=== PATIENT | male | born 1980 | race Caucasian/White ===

== ENCOUNTER 2016-08-07 18:31 | Emergency (ER) | payer BC ==
[~2016-08-07] VITALS: Ht 180.3 cm; Wt 65.0 kg
[2016-08-07 18:38] VITALS: TEMP 36.9; Ht 180.3 cm; Wt 65.0 kg
[2016-08-07] MEDS ORDERED: DIPH1TAB87 PO (20:00)
--- NOTE | 2016-08-07 20:01 | EMERGENCY ROOM VISIT NOTE ---
History Report prepared by Iggy: Lexie Meyer Under the Supervision of: Dr. Luis Coles M.D. First contact with patient: 19:42 Chief Complaint: ABDOMINAL PAIN Stated Complaint: ABDOMINAL PAIN, CRAMPS, BLOOD IN STOOL Nursing Triage Summary: Patient reports he administered an emema of vodka last night and now is having rectal bleeding for the past 5 hours. History of Present Illness The patient is a 36 year old male who presents to the Emergency Room with complaints of worsening rectal bleeding with onset five hours ago. He rates his discomfort as a 2/10. Today, the patient used a syringe plunger to administer a vodka enema as a "routine cleansing procedure." He denies that there was anything sharp on the plunger. He states that this is the third time he has given himself an enema. After giving himself the enema, the patient developed abdominal cramping and later noticed that there was bright red blood in his stool. The patient has had been able to pass a small amount of stool, he states that the stool is normal in appearance. The patient states that he is mostly concerned about infections. The patient denies a history of abdominal surgeries. Source of History: patient Onset: 5 hours ago Position: other (rectum) Symptom Intensity: 2/10 Quality: other (blood in stool) Timing: worsening Note: He has some abdominal cramping. Review of Systems See HPI for pertinent positives & negatives. A total of 10 systems reviewed and were otherwise negative. Past Medical & Surgical Medical Problems: (1) No chronic problems Family History Diabetes mellitus Social History Smoking Status: Never Smoker Alcohol Use: occasionally Marital Status: single Occupation Status: unemployed Current/Historical Medications Scheduled Sennosides-Docusate Sodium (Senokot S), 1 TAB PO BID Scheduled PRN Diphenhydramine Hcl (Benadryl Allergy), 50 MG PO HS PRN for Sleep Allergies Coded Allergies: Penicillins (Unverified Allergy, Unknown, RASH, 08/07/16) Physical Exam Vital Signs Date Time Temp Pulse Resp B/P Pulse Ox O2 Delivery O2 Flow Rate FiO2 08/08/16 00:21 58 16 107/73 97 08/07/16 21:41 60 18 117/68 100 08/07/16 18:38 36.9 59 20 137/92 95 Room Air Physical Exam GENERAL: Patient is in no acute distress. HEENT: No acute trauma, normocephalic atraumatic, mucous membranes moist, no nasal congestion, no scleral icterus. NECK: No stridor, no adenopathy, no meningismus, trachea is midline. LUNGS: Clear to auscultation bilaterally, no wheeze, no rhonchi, breath sounds equal. HEART: Without murmurs gallops or rubs, regular rate and rhythm. ABDOMEN: Soft, nontender, bowel sounds positive, no hernias, no peritonitis. EXTREMITIES: No cyanosis or edema, full range of motion of all the joints without pain or difficulty, no signs for acute trauma. NEUROLOGIC: Oriented x 3, no acute motor or sensory deficits, no focal weakness. SKIN: No rash, no jaundice, no diaphoresis. RECTAL: No anal tear or hemorrhoid, no external source for bleeding, digital exam reveals no mass, no bright red blood, heme test was positive. Medical Decision & Procedures ER Provider Diagnostic Interpretation: CT results as stated below per my review and radiologist interpretation: CT Abdomen and Pelvis: Distal colitis. No free air or abscess. Normal appendix. Radiologist: John Lee MD. Laboratory Results 08/07/16 20:10 Red Blood Count 5.06, Mean Corpuscular Volume 91.3, Mean Corpuscular Hemoglobin 32.4, Mean Corpuscular Hemoglobin Concent 35.5, Mean Platelet Volume 11.8, Neutrophils (%) (Auto) 80.4, Lymphocytes (%) (Auto) 12.0, Monocytes (%) (Auto) 6.9, Eosinophils (%) (Auto) 0.2, Basophils (%) (Auto) 0.3, Neutrophils # (Auto) 8.08, Lymphocytes # (Auto) 1.21, Monocytes # (Auto) 0.69, Eosinophils # (Auto) 0.02, Basophils # (Auto) 0.03 08/07/16 20:10 Test 08/07/16 20:10 White Blood Count 10.05 K/uL (4.8-10.8) Red Blood Count 5.06 M/uL (4.7-6.1) Hemoglobin 16.4 g/dL (14.0-18.0) Hematocrit 46.2 % (42-52) Mean Corpuscular Volume 91.3 fL (80-100) Mean Corpuscular Hemoglobin 32.4 pg (25-34) Mean Corpuscular Hemoglobin Concent 35.5 g/dl (32-36) Platelet Count 179 K/uL (130-400) Mean Platelet Volume 11.8 fL (7.4-10.4) Neutrophils (%) (Auto) 80.4 % Lymphocytes (%) (Auto) 12.0 % Monocytes (%) (Auto) 6.9 % Eosinophils (%) (Auto) 0.2 % Basophils (%) (Auto) 0.3 % Neutrophils # (Auto) 8.08 K/uL (1.4-6.5) Lymphocytes # (Auto) 1.21 K/uL (1.2-3.4) Monocytes # (Auto) 0.69 K/uL (0.11-0.59) Eosinophils # (Auto) 0.02 K/uL (0-0.5) Basophils # (Auto) 0.03 K/uL (0-0.2) RDW Standard Deviation 39.5 fL (36.4-46.3) RDW Coefficient of Variation 11.8 % (11.5-14.5) Immature Granulocyte % (Auto) 0.2 % Immature Granulocyte # (Auto) 0.02 K/uL (0.00-0.02) Prothrombin Time 10.8 SECONDS (9.0-12.0) Prothromb Time International Ratio 1.0 (0.9-1.1) Activated Partial Thromboplast Time 26.6 SECONDS (21.0-31.0) Partial Thromboplastin Ratio 1.0 Anion Gap 7.0 mmol/L (3-11) Est Creatinine Clear Calc Drug Dose 110.0 ml/min Estimated GFR () 130.5 Estimated GFR (Non- 112.6 BUN/Creatinine Ratio 20.2 (10-20) Calcium Level 8.8 mg/dl (8.5-10.1) Laboratory results reviewed by me. Medications Administered Medications (Trade) Dose Ordered Sig/Armin Route Start Time Stop Time Status Last Admin Dose Admin Sodium Chloride (Nss 1000ml) 500 ml @ 999 mls/hr Q31M STAT IV 08/07/16 20:05 08/07/16 20:35 DC 08/07/16 20:30 999 MLS/HR Ondansetron HCl 4 mg 4 mg NOW STAT IV 08/07/16 20:05 3/31/17 20:08 DC 08/07/16 20:30 4 MG Sodium Chloride (Nss 1000ml) 1,000 ml @ 200 mls/hr Q5H STAT IV 08/07/16 20:05 08/08/16 00:51 DC 08/07/16 21:22 200 MLS/HR ED Course 1942: The patient was evaluated in room B3. A complete history and physical exam was performed. 2000: I discussed the case with Dr. Zaragoza (GI); he recommends that the patient get a CT with contrast to check for a perforation. 2004: Sodium Chloride 1000 ml @ 200 mls/hr IV, Zofran 4 mg IV, Sodium Chloride 500 ml @ 999 mls/hr IV 2006: I updated the patient on my discussion with Dr. Zaragoza. 2157: I reevaluated the patient; he is resting. 0008: Reevaluated the patient. Discussed results and discharge instructions: He verbalized understanding and agreement. The patient is ready for discharge. Medical Decision The patient is a 36 year old male who presents to the ED with complaints of blood in his stool. Differential diagnoses considered include: anal tear, hemorrhoid, rectal tear, lower GI bleed, anemia, colitis. There is no leukocytosis or concerning anemia. No significant electrolyte abnormality or kidney failure. There was no coagulopathy. On exam, the patient was not febrile or toxic. There was no peritonitis. No amy blood per rectal exam but the heme test was positive. Abdominal and pelvis CT shows a distal colitis, no perforation to the bowel. I discussed the case with the on-call GI doctor. The patient is able to be discharged, a bland diet was suggested, the colitis should heal with time. The patient has a colitis from the irritation that resulted from the Vodka enema. The patient was encouraged to return for worsening bleeding, fever or worsening pain. Consults Time Called: 1957 Consulting Physician: Dr. Zaragoza (GI) Returned Call: 2000 I discussed the case with Dr. Zaragoza (GI); he recommends that the patient get a CT with contrast to check for a perforation. Impression Primary Impression: Rectal bleeding Additional Impression: Colitis Scribe Attestation The scribe's documentation has been prepared under my direction and personally reviewed by me in its entirety. I confirm that the note above accurately reflects all work, treatment, procedures, and medical decision making performed by me. Departure Information Dispostion Home / Self-Care Prescriptions Sennosides-Docusate Sodium (SENOKOT S) 1 Tab Tab 1 TAB PO BID, #30 TAB Prov: Luis Coles M.D. 08/08/16 Referrals No Doctor, Assigned (PCP) Forms Call Back Authorization, HOME CARE DOCUMENTATION FORM, IMPORTANT VISIT INFORMATION Patient Instructions My [facility] Additional Instructions bland diet---crackers, soup, toast, gatorade tylenol for pain return for fever, worsening pain, vomiting, worsening bleeding senokot 2x per day to keep stools soft no more vodka enemas Problem Qualifiers
[2016-08-07] MEDS ORDERED: ONDANSETRON INJ 2 MG/ML 2 ML VIAL IV STA (20:05)
[2016-08-07] MEDS ORDERED: SODIUM CHLORIDE 0.9% 1000ML 1,000 ML IV STA (20:05)
[2016-08-07] MEDS ORDERED: SODIUM CHLORIDE 0.9% 1000ML 500 ML IV STA (20:05)
[2016-08-07 20:26] LABS: BASO % 0.3 %; BASO ABS # 0.03 K/uL (0-0.2); COMPLETE YES; EOS % 0.2 %; HEMATOCRIT 46.2 % (42-52); IG% 0.2 %; LYMPH ABS # 1.21 K/uL (1.2-3.4); MEAN CELL VOLUME 91.3 fL (80-100); MEAN CORPUSCULAR HEMOGLOBIN 32.4 pg (25-34); MEAN CORPUSCULAR HGB CONC 35.5 g/dl (32-36); MEAN PLATELET VOLUME 11.8 fL (7.4-10.4); MONO % 6.9 %; NEUT % 80.4 %; PLATELET COUNT 179 K/uL (130-400); RED BLOOD COUNT 5.06 M/uL (4.7-6.1); WHITE BLOOD COUNT 10.05 K/uL (4.8-10.8)
[2016-08-07 20:35] LABS: PROTHROMBIN TIME (PATIENT) 10.8 SECONDS (9.0-12.0)
[2016-08-07 20:45] LABS: BUN/CREATININE RATIO 20.2 (10-20); CALCIUM 8.8 mg/dl (8.5-10.1); CREATININE 0.87 mg/dl (0.60-1.40)
[2016-08-07] MEDS ORDERED: OPTIRAY 320 IV PRN (23:30)
[2016-08-08] MEDS ORDERED: SENN-65 PO (00:13)
[2016-08-08 00:21] VITALS: BP 107/73; PULSE 58; O2SAT 97
--- NOTE | 2016-08-08 06:59 | DIAGNOSTIC IMAGING REPORT ---
CT OF THE ABDOMEN AND PELVIS WITH CONTRAST CLINICAL HISTORY: Vodka enema. Abdominal pain, cramps and blood in stool. COMPARISON STUDY: None. TECHNIQUE: Following IV administration of 115 mL of [id number]-[id number], axial images of the abdomen and pelvis were obtained from the lung bases to the proximal femurs. Images were reviewed in the axial, sagittal, and coronal planes. IV contrast was administered without complication. Oral contrast was administered. CT DOSE: 304.75 mGy.cm FINDINGS: The liver, spleen, adrenal glands, kidneys and pancreas are normal. There is no pneumatosis, free air or portal venous gas. There is no evidence for a bowel obstruction. Note is made of moderate wall thickening of the rectum and sigmoid colon with mucosal hyperemia. There is mild wall thickening of the distal descending colon. There is no abscess. No associated free air is present. No additional sites of bowel wall thickening are present. The appendix is normal. Skeletal structures are unremarkable. IMPRESSION: Moderate distal colonic and rectal wall thickening consistent with proctocolitis which can be seen in the setting of an alcohol enema. No free air or abscess. Electronically signed by: Tej Izquierdo M.D. 08/08/2016 6:58 AM Dictated Date/Time: 08/08/2016 6:54 AM
== END 2016-08-08 00:23 | disposition home or self-care (01) ==
LOC: C.EDB 18:33
DX: K52.9 Noninfective gastroenteritis and colitis, unspecified (principal); K62.5 Hemorrhage of anus and rectum; Z79.899 Other long term (current) drug therapy; Z88.0 Allergy status to penicillin; Z83.3 Family history of diabetes mellitus